=== PATIENT | male | born 1975 | race Caucasian/White ===

== ENCOUNTER → 2017-07-22 | Outpatient (CLI) | payer MEDICARE, OTHER ==
[~2017-07-22] MED LIST: BUTA1CAP57 PO; CLON0.3T47 PO; CLON1PAT8 TP; DIAZ5TAB4 PO; ENOX80SY5 SQ; FURO40TA6 PO; HYDR-3342 PO; INSU500V IVPINSULIN; LABE200T3 PO; LISI40TA PO; METO10TA82 PO; SIMV20TA3 PO; ZOLP5TAB6 PO
== END | disposition home or self-care (01) ==
LOC: CVU 09:40
PROVIDERS: ATTEND Nurse Practitioner Family
DX: I31.3 Pericardial effusion (noninflammatory) (principal); N18.6 End stage renal disease; I12.0 Hypertensive chronic kidney disease with stage 5 chronic kidney disease or end stage renal disease; E78.5 Hyperlipidemia, unspecified; E11.22 Type 2 diabetes mellitus with diabetic chronic kidney disease
CPT/HCPCS: 93306

== ENCOUNTER → 2018-09-29 | Outpatient (CLI) | payer MEDICARE, OTHER ==
[~2018-09-29] MED LIST changes: -LABE200T3 PO; +LABE200T6 PO
== END | disposition home or self-care (01) ==
LOC: CFH 10:58
PROVIDERS: ATTEND Internal Medicine Cardiovascular Disease
DX: I08.3 Combined rheumatic disorders of mitral, aortic and tricuspid valves (principal); I31.3 Pericardial effusion (noninflammatory)
CPT/HCPCS: 93306